=== PATIENT | male | born 1930 | race Hispanic/Latino ===

== ENCOUNTER → 2018-02-21 | Outpatient (CLI) | payer OTHER ==
[~2018-02-21] MED LIST: ALEN70TA47 PO; ASPI-555 PO; FAMO20TA8 PO; FINA5TAB41 PO; FLUT12AE IH; ISOS30TA6 PO; LEVO50TA11 PO; METF-444 PO; NITRS4 SL; PIOG30TA70 PO; RIVA15TA PO; SIMV40TA5 PO; SOLI5 PO; TAMS0.4C32 PO; VALS160T29 PO
== END | disposition home or self-care (01) ==
LOC: RAH 09:26
PROVIDERS: ATTEND Internal Medicine Cardiovascular Disease
DX: I51.7 Cardiomegaly (principal); I44.1 Atrioventricular block, second degree; I49.5 Sick sinus syndrome
CPT/HCPCS: 93306

== ENCOUNTER 2018-03-17 05:46 | Observation (INO) | payer OTHER ==
[2018-03-15 08:42] VITALS: BP 151/66
[2018-03-15 09:01] LABS: EOSINOPHILS % (AUTO) 11.6 % (0.0-8.0); HEMATOCRIT 37.7 % (42-54); LYMPHOCYTES % (AUTO) 16.1 % (21.0-51.0); MEAN CORPUSCULAR HEMOGLOBIN 31.8 pg (27.0-33.0); MEAN CORPUSCULAR HGB CONC 32.3 g/dL (32.0-36.0); MEAN CORPUSCULAR VOLUME 98.4 fL (79-99); MONOCYTES % (AUTO) 9.1 % (3.0-13.0); NEUTROPHILS % (AUTO) 62.2 % (40.0-77.0); PLATELET COUNT (AUTO) 219 K/uL (130-400); RED BLOOD CELL COUNT(AUTO) 3.83 MIL/uL (4.50-6.20); RED CELL DISTRIBUTION WIDTH 14.5 % (11.0-15.5); WHITE BLOOD COUNT (AUTO) 4.6 K/uL (4.8-10.8)
[2018-03-15 09:08] LABS: CREATININE 1.7 mg/dL (0.5-1.5)
[2018-03-15 09:14] LABS: INR 0.98 (0.85-1.15); PARTIAL THROMBOPLASTIN TIME 28.7 SEC (26.3-35.5); PROTHROMBIN TIME 10.3 SEC (9.6-11.6)
[2018-03-17] VITALS (14 sets, daily range): BP systolic 118–206; BP diastolic 65–91
[~2018-03-17] VITALS: Ht 162.6 cm; Wt 82.2 kg
[~2018-03-17 05:46] MED LIST changes: -ISOS30TA6 PO; +LOSA100T20 PO; -METF-444 PO; -RIVA15TA PO; +SODIUM CHLORIDE 0.9% 1000ML 1,000 ML IV SCH; -VALS160T29 PO
[2018-03-17] MEDS ORDERED: MEPERIDINE-PF 25 MG/ML SYG ONE ×2 (07:10→08:06)
[2018-03-17] MEDS ORDERED: BUPIVACAINE/PF 0.25% 50ML VIAL IJ ONE (07:11)
[2018-03-17] MEDS ORDERED: LIDOCAINE HCL 1% MDV 50ML VIAL ONE (07:11)
[2018-03-17] MEDS ORDERED: MIDAZOLAM HCL 1 MG/ML 2ML VIAL ONE ×2 (07:11→08:06)
[2018-03-17] MEDS ORDERED: CEFAZOLIN SODIUM 1 GM VIAL ONE ×2 (07:11→07:14)
[2018-03-17] MEDS ORDERED: VANCOMYCIN 1GM+NS 250ML 500 ML IV ONE (07:41)
[2018-03-17] MEDS ORDERED: NITROGLYCERIN 4.1 GM SPRAY TL SCH (09:15)
[2018-03-17] MEDS ORDERED: ACETAMINOPHEN-CODEINE 300/30MG TAB PO PRN ×2 (09:15)
[2018-03-17] MEDS ORDERED: ACETAMINOPHEN 325 MG TAB PO PRN (09:15)
[2018-03-17] MEDS: HYDRALAZINE HCL 20 MG/ML VIAL IV SCH (13:17)
[2018-03-17] MEDS: ADVAIR IH SCH (19:31)
[2018-03-17] MEDS ORDERED: PIOGLITAZONE HCL 15 MG TAB ONE (19:36)
[2018-03-17] MEDS ORDERED: SIMVASTATIN 20 MG TABLET PO SCH (21:00)
[2018-03-17] MEDS ORDERED: FAMOTIDINE 20MG TAB 20 MG TAB PO SCH (21:00)
[2018-03-17] MEDS ORDERED: PIOGLITAZONE HCL 30 MG TAB PO SCH (21:00)
[2018-03-17] MEDS ORDERED: **HM** VESICARE 5MG PO SCH (21:00)
[2018-03-18 03:26] VITALS: BP_SYST 141; BP_SYST 151; BP_DIAS 74; BP_DIAS 75
[2018-03-18 04:26] LABS: HEMATOCRIT 33.8 % (42-54); MEAN CORPUSCULAR HEMOGLOBIN 33.2 pg (27.0-33.0); MEAN CORPUSCULAR HGB CONC 33.9 g/dL (32.0-36.0); MEAN CORPUSCULAR VOLUME 97.8 fL (79-99); PLATELET COUNT (AUTO) 216 K/uL (130-400); RED BLOOD CELL COUNT(AUTO) 3.46 MIL/uL (4.50-6.20); RED CELL DISTRIBUTION WIDTH 14.5 % (11.0-15.5); WHITE BLOOD COUNT (AUTO) 7.4 K/uL (4.8-10.8)
[2018-03-18 04:31] LABS: CREATININE 1.6 mg/dL (0.5-1.5); POTASSIUM 4.4 mmol/L (3.5-5.1)
[2018-03-18] MEDS ORDERED: LEVOTHYROXINE 50 MCG TABLET ONE (07:17)
[2018-03-18 07:50] VITALS: BP 152/72
[2018-03-18] MEDS ORDERED: TAMSULOSIN HCL 0.4 MG CAP.ER.24H PO SCH (09:00)
[2018-03-18] MEDS ORDERED: ASPIRIN 81MG TAB.CHEW PO SCH (09:00)
[2018-03-18] MEDS ORDERED: LEVOTHYROXINE 50 MCG TABLET PO SCH (09:00)
[2018-03-18] MEDS ORDERED: LOSARTAN 100 MG TABLET PO SCH (09:00)
[2018-03-18] MEDS ORDERED: FINASTERIDE 5 MG TABLET PO SCH (09:00)
[2018-03-18] MEDS: ADVAIR IH SCH (09:56)
[2018-03-18] MEDS: HYDRALAZINE HCL 20 MG/ML VIAL IV SCH (09:57)
[2018-03-18 11:56] VITALS: BP 156/93
[2018-03-18 16:00] VITALS: BP 134/74
== END 2018-03-18 18:30 ==
LOC: DAH 05:46 → DAHIP 05:47 → 2AH 13:25
PROVIDERS: ADMIT Internal Medicine Cardiovascular Disease; ATTEND Internal Medicine Cardiovascular Disease
DX: I44.1 Atrioventricular block, second degree (principal); I49.5 Sick sinus syndrome; E03.9 Hypothyroidism, unspecified; E11.22 Type 2 diabetes mellitus with diabetic chronic kidney disease; E78.5 Hyperlipidemia, unspecified; I13.0 Hypertensive heart and chronic kidney disease with heart failure and stage 1 through stage 4 chronic kidney disease, or unspecified chronic kidney disease; I50.9 Heart failure, unspecified; N18.9 Chronic kidney disease, unspecified; I25.10 Atherosclerotic heart disease of native coronary artery without angina pectoris; Z95.0 Presence of cardiac pacemaker; Z95.1 Presence of aortocoronary bypass graft
CPT/HCPCS: 33208; 36415 ×2; 71045; 80048 ×2; 82948 ×6; 85025; 85027; 85610; 85730; 93005; 96374; 97039; 97161; A4606; C1785; C1894; C1898 ×2; G0378 ×37; G8978; G8979; G8980; G8981; G8982; G8983; J0360; J0690 ×2; J2175 ×2; J2250 ×2; J3370; J3490 ×2; J7030; 99156; 99157

== ENCOUNTER 2018-03-29 15:14 | Emergency (ER) | payer OTHER ==
[~2018-03-29 15:14] MED LIST changes: -SODIUM CHLORIDE 0.9% 1000ML 1,000 ML IV SCH
[2018-03-29 15:47] LABS: BASOPHILS % (AUTO) 0.8 % (0.0-5.0); EOSINOPHILS % (AUTO) 7.7 % (0.0-8.0); HEMATOCRIT 34.8 % (42-54); LYMPHOCYTES % (AUTO) 8.5 % (21.0-51.0); MEAN CORPUSCULAR HEMOGLOBIN 32.8 pg (27.0-33.0); MEAN CORPUSCULAR HGB CONC 33.3 g/dL (32.0-36.0); MEAN CORPUSCULAR VOLUME 98.5 fL (79-99); MONOCYTES % (AUTO) 8.2 % (3.0-13.0); NEUTROPHILS % (AUTO) 74.8 % (40.0-77.0); PLATELET COUNT (AUTO) 284 K/uL (130-400); RED BLOOD CELL COUNT(AUTO) 3.54 MIL/uL (4.50-6.20); RED CELL DISTRIBUTION WIDTH 14.8 % (11.0-15.5); WHITE BLOOD COUNT (AUTO) 7.5 K/uL (4.8-10.8)
[2018-03-29 16:04] LABS: INR 0.95 (0.85-1.15); PARTIAL THROMBOPLASTIN TIME 28.3 SEC (26.3-35.5)
[2018-03-29 16:06] LABS: CREATININE 1.7 mg/dL (0.5-1.5); POTASSIUM 4.8 mmol/L (3.5-5.1)
[2018-03-29 16:11] LABS: BILIRUBIN,TOTAL 0.5 mg/dL (0.2-1.0)
[2018-03-29 16:25] LABS: B-TYPE NATRIURETIC PEPTIDE 549 pg/mL (0-100)
[2018-03-29] MEDS ORDERED: ONDANSETRON HCL 4 MG/2 ML VIAL ONE (16:30)
[2018-03-29] MEDS ORDERED: MORPHINE SULFATE 4 MG/1ML SYG ONE ×2 (16:31→17:53)
[2018-03-29] MEDS ORDERED: FUROSEMIDE 10 MG/ML 2ML VIAL ONE (17:51)
== END 2018-03-29 19:31 | disposition home or self-care (01) ==
LOC: EDH 15:14
DX: R60.0 Localized edema (principal); I10 Essential (primary) hypertension; E11.9 Type 2 diabetes mellitus without complications; E78.5 Hyperlipidemia, unspecified; E07.9 Disorder of thyroid, unspecified; I25.10 Atherosclerotic heart disease of native coronary artery without angina pectoris; Z88.8 Allergy status to other drugs, medicaments and biological substances; Z95.0 Presence of cardiac pacemaker
CPT/HCPCS: 36415; 71045; 80053; 82550; 83880; 84484 ×2; 85025; 85610; 85730; 93970; 96374; 96375; 96376; 99284; J1940; J2270 ×2; J2405

== ENCOUNTER → 2019-06-08 | Outpatient (CLI) | payer OTHER ==
[~2019-06-08] MED LIST changes: +ALEN70TA10 PO; -ALEN70TA47 PO; -LOSA100T20 PO; +LOSA100T58 PO; +SIMV-46 PO; -SIMV40TA5 PO
== END | disposition home or self-care (01) ==
LOC: RAH 12:51
PROVIDERS: ATTEND Internal Medicine Cardiovascular Disease
DX: J98.11 Atelectasis (principal); I51.7 Cardiomegaly; I70.0 Atherosclerosis of aorta; D17.79 Benign lipomatous neoplasm of other sites; R91.8 Other nonspecific abnormal finding of lung field; Z95.0 Presence of cardiac pacemaker
CPT/HCPCS: 71250